=== PATIENT | female | born 1965 | race Caucasian/White ===

== ENCOUNTER 2023-07-09 18:35 | Emergency (ER) | payer BC ==
[~2023-07-09] VITALS: Ht 170.2 cm; Wt 116.0 kg
[2023-07-09 18:55] VITALS: BP 137/79
[2023-07-09 19:00] VITALS: BP 127/86
[2023-07-09 20:14] VITALS: BP 127/86
== END 2023-07-09 20:17 | disposition home or self-care (01) | DRG 605 ==
LOC: ED 18:35
PROC: 0HQGXZZ Repair Left Hand Skin, External Approach (ICD-10-PCS; principal; 2023-07-09)
DX: S61.211A Laceration without foreign body of left index finger without damage to nail, initial encounter (principal); W26.8XXA Contact with other sharp object(s), not elsewhere classified, initial encounter